=== PATIENT | female | born 1980 | race Caucasian/White ===

== ENCOUNTER → 2017-08-14 | Outpatient (CLI) | payer BC ==
--- NOTE | 2017-08-14 13:18 | US ---
EXAMINATION TYPE: US transvaginal DATE OF EXAM: 08/14/2017 COMPARISON: 10/05/2012 CLINICAL HISTORY: R10.2 Pelvic Pain. pelvic pain for years TECHNIQUE: TV. Date of LMP: 08/12/2017 EXAM MEASUREMENTS: Uterus: 9.1 x 4.6 x 4.4 cm Endometrial Stripe: 0.4 cm Right Ovary: 2.8 x 2.4 x 2.2 cm Left Ovary: 2.8 x 2.1 x 1.5 cm There is incidental note made of multiple nabothian cysts. 1. Uterus: Anteverted nabothian cysts seen the previously questioned uterine leiomyoma is not iden tified on today's examination. 2. Endometrium: wnl 3. Right Ovary: wnl 4. Left Ovary: wnl 5. Bilateral Adnexa: wnl 6. Posterior cul-de-sac: wnl IMPRESSION: Unremarkable pelvic ultrasound with no evidence of endometrial thickening. The previously questioned leiomyoma is not visualized on today's examination. Nabothian cysts are incidentally seen .
== END | disposition home or self-care (01) ==
LOC: RADUSWWP 12:05
PROVIDERS: ATTEND Internal Medicine
DX: R10.2 Pelvic and perineal pain (principal)
CPT/HCPCS: 76830

== ENCOUNTER → 2023-05-22 | Outpatient (CLI) | payer OTHER ==
--- NOTE | 2023-05-22 11:43 | XR ---
EXAMINATION TYPE: XR ribs LT w pa chest xray DATE OF EXAM: 05/22/2023 COMPARISON: NONE HISTORY: Pain TECHNIQUE: Single view of the chest 4 views of the ribs are submitted. FINDINGS: The lungs are clear. No Evidence for pneumothorax. No evidence for focal contusion. Medi astinal structures are midline. Evaluation of the ribs fails to demonstrate evidence for displaced r ib fracture or secondary sign of rib fracture. IMPRESSION: Negative study
== END | disposition home or self-care (01) ==
LOC: RADXRYALE 10:16
PROVIDERS: ATTEND Internal Medicine
DX: R07.82 Intercostal pain (principal)

== ENCOUNTER → 2023-06-26 | Outpatient (CLI) | payer OTHER ==
--- NOTE | 2023-06-26 13:54 | MM ---
Reason for Exam: Clinical finding. Last mammogram was performed 6 year(s) and 3 month(s) ago. Patient History: Menarche at age 14. First Full-Term at age 24. Hormonal Contraceptives, starting at age 20 for 3 years. Maternal grandmother had breast cancer, age 42. Risk Values: Ting 5 year model risk: 0.5%. NCI Lifetime model risk: 9.0%. Tissue Density: The breasts are heterogeneously dense, which may obscure small masses. Findings: Analyzed By CAD. No significant change from prior exams. Overall Assessment: Incomplete: need additional imaging evaluation, BI-RAD 0 Management: Diagnostic Breast Ultrasound of both breasts. For pain as ordered. Electronically signed and approved by: Irineo Gilbert M.D. Radiologist
--- NOTE | 2023-06-26 15:07 | USB ---
Reason for Exam: Clinical finding. Patient History: Menarche at age 14. First Full-Term at age 24. Hormonal Contraceptives, starting at age 20 for 3 years. Maternal grandmother had breast cancer, age 42. Risk Values: Ting 5 year model risk: 0.5%. NCI Lifetime model risk: 9.0%. Technique: Method: Whole Breast Handheld. Prior Study Comparison: 03/26/2017 Bilateral Screening Mammogram, [facility]. 03/26/2017 Right Diagnostic Mammogram, [facility]. Findings: The whole breast of both breasts, the axilla of both breasts and the retroareolar of both breasts were scanned. A complete US of all four quadrants of both breasts, axilla, and retro-areolar region were reviewed. No solid or cystic masses are identified. No active lymphadenopathy. Overall Assessment: Benign, BI-RAD 2 Management: Screening Mammogram of both breasts in 1 year. Further clinical management of patient's breast pain. A clinical breast exam by your physician is recommended on an annual basis and results should be correlated with mammographic findings. This exam should not preclude additional follow-up of suspicious palpable abnormalities. Results were given to the patient verbally at the time of exam. Electronically signed and approved by: Irineo Gilbert M.D. Radiologist
== END | disposition home or self-care (01) ==
LOC: RADMAMWWP 13:06
PROVIDERS: ATTEND Obstetrics & Gynecology
DX: R92.333 Mammographic heterogeneous density, bilateral breasts (principal); N64.4 Mastodynia; Z80.3 Family history of malignant neoplasm of breast
CPT/HCPCS: 77062; 77066